=== PATIENT | male | born 1960 | race Caucasian/White ===

== ENCOUNTER 2017-02-13 17:45 | Inpatient (IN) | payer BC ==
--- NOTE | ~2017-02-13 | OP ---
Record Of Operation [facility] [address] [place]. 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 The tumor is unresectable at this time, obstructive jaundice secondary to biliary obstruction, hypertension, diabetes, coronary artery disease, and history of transient ischemic attack. PROCEDURE: Laparotomy, biopsy of head of pancreas and uncinate process, and cholecystectomy. SURGEON: Wilfred Diggs M.D. ANESTHESIA: General with intubation. COMPLICATIONS: None. ESTIMATED BLOOD LOSS: 20 mL. SPECIMENS: Gallbladder. DRAINS: Jann-Mendes in abdominal cavity, [place] in subcutaneous tissue. LAP AND SPONGE COUNT: Correct x3. BRIEF HISTORY: This 56-year-old male had been admitted to the hospital emergently on 02/13/2017. His workup showed evidence for an obstruction of the distal common bile duct secondary to a malignant stricture. This was associated with obstructive jaundice. ERCP and biliary stent had been placed. His workup showed no definite evidence for pancreatic mass and this was felt to be a resectable malignancy of the periampullary region. It was therefore felt that laparotomy with probable Whipple procedure was indicated. This procedure, the risks, benefits, and alternatives including but not limited to the risk for bleeding, infection, enterotomy, injury to any abdominal structure, postop small bowel obstruction, ileus, incisional hernia, dehiscence, anastomotic leak involving any one or all three of the anastomoses including the biliary, pancreatic or gastric anastomosis, pancreatitis, pancreatic fistula formation, obstruction of any one or all three of the anastomoses including the gastric, biliary or pancreatic anastomosis, possibility that the tumor might not be resectable and unforeseen complications including deep venous thrombosis, pulmonary embolus, myocardial infarction, stroke, pneumonia and , were fully and Record Of Operation [facility] [id number] [place]. [address] NAME: JOÃO MOORE JR : 60 STATUS : ADM IN PAT#: [id number] AGE: 56 ADM/REG DATE : 02/13/17 MR#: [id number] REPORT SERV DATE: 02/19/17 DICTATED BY: WILFRED DIGGS III DATE: 02/19/17 REPORT STATUS : Draft TRANSCRIBED BY: BINDU DATE: 02/19/17 completely explained to the patient prior to surgery. The fact that this was a major operation with high risk for morbidity and mortality was explained. The fact this was the only potential procedure for cure in this setting with this malignancy was explained. The risk of morbidity requiring reoperation of at least 20%, risk of mortality of 5%-10% was explained. The patient's questions were answered. He fully understood the risks and agreed to surgery as planned. FINDINGS: The patient had a malignancy of the head of the pancreas. The malignancy extended to the portal vein and the radiographic findings grossly underestimated the extent of the disease. Malignancy extended into the pancreatic head superior to the portal vein along the superior portion of the pancreas and along the right lateral border of the portal vein. The portal vein was tethered to the pancreas due to the malignancy primarily along the superior border of the pancreas. It was unclear initially if this tethering or adherence of the pancreatic head of the portal vein was secondary to pancreatitis or malignancy. For this reason, intraoperative biopsies were performed of the area involving the portal vein, and these biopsies returned being positive for malignancy. Therefore, the tumor was felt to be unresectable currently. However, the primary area of unresectability was along the right lateral border of the portal vein and just superior to the portal vein along the superior portion of the pancreas. This extended into the portal region. It was felt that a segmental portal vein resection would not be possible. It was my judgment made intraoperatively, attempting to complete the Whipple procedure would have placed the patient at significant risk for major portal vein injury with possible intraoperative . In addition, it was clear that with clear resection, margins could not be obtained, again secondary to involvement of the portal vein. There was a significant portion of the portal vein involved, which would have made segmental resection not feasible as the involvement extended again into the portal area proximally. For this reason, biopsies were taken for further histologic confirmation and the gallbladder was removed. PROCEDURE IN DETAIL: After being properly identified and after discussing risks of surgery with the patient again in the preoperative area, with no family here in the preoperative area, the patient was taken to the operating room and placed in the supine position on the operating room table. General anesthesia was administered. He was intubated without difficulty. A Emerson catheter was inserted. The abdomen was prepped and draped sterilely in the usual fashion. After an appropriate "time-out" per JCAHO standards, a right subcostal incision was made and extended across the midline to the left. The incision was continued through the subcutaneous tissue. Hemostasis was controlled with cautery. The incision was continued through the fascia. The abdominal cavity was entered. The above findings were confirmed. There was no evidence for carcinomatosis or peritoneal disease. The gallbladder was distended and appeared chronically diseased. Using sharp dissection, the gallbladder was dissected from the liver in a retrograde fashion. The cystic artery and cystic duct were individually isolated, ligated, and divided. The gallbladder was thus completely removed. A Alon maneuver was performed by dividing the peritoneal reflection to the duodenum along the second and third portion of duodenum. The duodenum was mobilized medially. The duodenum was easily mobilized away from the inferior vena cava. Record Of Operation [address] [place]. [address] NAME: JOÃO MOORE JR : 60 STATUS : ADM IN PAT#: [id number] AGE: 56 ADM/REG DATE : 02/13/17 MR#: [id number] REPORT SERV DATE: 02/19/17 DICTATED BY: WILFRED DIGGS III DATE: 02/19/17 REPORT STATUS : Draft TRANSCRIBED BY: MODL DATE: 02/19/17 At this time, the lesser sac was entered by dividing the gastrocolic ligament between the stomach and the colon using the Harmonic scalpel. The lesser sac was entered. We dissected along the inferior border of the pancreas. Using sharp dissection, we dissected along the inferior border of the pancreas and identified the superior mesenteric vein as it went just beneath the inferior border of the pancreas. We then dissected superiorly. It was clear that the superior portion of the portal vein just beneath the superior surface of the pancreas, was tethered down by tumor. In addition, laterally on the right lateral side, the portal vein was not separable. The tumor was encroaching in the uncinate process and head of the pancreas, both lateral to the portal vein and superior to the portal vein. A considerable amount of time was spent inspecting this area, both through the lesser sac and through the portal region. Using sharp dissection, peritoneal reflection over the common bile duct was divided. The common bile duct was exposed proximally and distally and a vessel loop was placed around it. We attempted to identify the portal vein in the portal region just above the superior border of the pancreas. This area was tethered by tumor. It was clear to me that the tumor extended from the head of the pancreas, from the common bile duct, to the uncinate process, to again the right lateral wall of the portal vein and superior to the portal vein. It was initially unclear if the involvement of the portal vein was secondary to pancreatitis or malignancy. For this reason, several core needle biopsies were performed on the tissue of the pancreatic head just superior to the portal vein where the portal vein was involved and to the right lateral side of the uncinate process. These were the first biopsies, biopsies #1, were of the pancreatic head and these were positive for malignancy. Several more biopsies were then taken, the second biopsies, which were of the uncinate process along the right lateral border of the portal vein. These were also positive. These findings confirmed to me that this was not resectable at this time. It was not a short-segment of portal vein involved, but the involvement extended up into the portal region. I did not feel the portal vein could be safely resected. I felt that the procedure could possibly complete, but there would be grossly involved margins along the portal vein. For this reason, we felt again that the procedure should not be come completed. The patient had no evidence for gastric outlet obstruction and therefore, there was no evidence of any indication or need for gastric bypass. The biliary stent was already in place and therefore, I did not feel there was indication for biliary bypass. The abdominal cavity was irrigated copiously with saline. Hemostasis was assured. A Jann-Mendes drain was brought through a separate stab wound lateral to the incision and placed in the gallbladder bed. Hemostasis was assured. The fascia was closed in two layers with a running looped #1 PDS suture. The subcutaneous tissue was closed with a running 3-0 chromic suture over the Melissa drain which was brought through the lower aspect of incision. The skin was closed with a running subcuticular 4-0 Monocryl stitch. Dressings were applied. Anesthesia was reversed, and the patient was taken to the recovery room in stable condition. He tolerated the procedure well. He initially had no family reachable to discuss the results of surgery with. I later discussed the results of surgery with his mother. DAVID/BINDU Record Of [address] [place]. [address] NAME: JOÃO MOORE : 60 STATUS : ADM IN [facility]#: [id number] AGE: 56 ADM/REG DATE : 02/13/17 MR#: [id number] REPORT SERV DATE: 02/19/17 DICTATED BY: WILFRED DIGGS III DATE: 02/19/17 REPORT STATUS : Draft TRANSCRIBED BY: BINDU DATE: 02/19/17 Wilfred Diggs III, M.D. / [id number] CC: Jase Garcia M.D.
--- NOTE | ~2017-02-13 | EGD ---
EGD REPORT [facility] [address] [place] [address] NAME: JOÃO MOORE JR : 60 STATUS : ADM IN PAT#: [id number] AGE: 56 ADM/REG DATE : 02/13/17 MR#: [id number] REPORT SERV DATE: 02/22/17 DICTATED BY: TIM BURNETT DATE: 02/22/17 REPORT STATUS : Draft [facility]ANS[facility]ED [facility]: [facility] DATE: 02/22/17 [facility] Patient Name: João Moore Date of : 1960 Attending MD: TIM BURNETT MD Procedure Date No Time: 02/14/2017 Procedure: ERCP Indications: Jaundice, Bile duct stricture Medicines: Monitored Anesthesia Care, General Anesthesia Complications: No immediate complications. Estimated blood loss: Minimal. Procedure: Pre-Anesthesia Assessment: - ASA Grade Assessment: IV - A patient with severe systemic disease that is a constant threat to life. After obtaining informed consent, the scope was passed under direct vision. Throughout the procedure, the patient's blood pressure, pulse, and oxygen saturations were monitored continuously. The Endoscope was introduced through the mouth, and advanced to the duodenum and used to inject contrast into the bile duct. The ERCP was accomplished without difficulty. The patient tolerated the procedure well. Findings: The invoice machine operator film was normal. The esophagus was successfully intubated under direct vision. The scope was advanced to a normal major papilla in the descending duodenum without detailed examination of the pharynx, larynx and associated structures, and upper GI tract. The minor papilla was seen and appeared to be enlarged, measuring approximately 10 mm in size, possibly secondary to a papillary adenoma. Biopsies were not taken during this procedure. The major papilla was located and numerous attempts were made to cannulate the CBD, but this proved to be very difficult with the wire continuing to go into the ventral pancreatic duct, but appeared to hit an obstruction each time, suggestive of possible pancreas divisum. The orignical wire was left in place in the VPD and a second wire was used to attempt to cannulate the CBD. After engaging the papilla several additional times, the wire was finally passed into the CBD. The bile duct was then cannulated and opacified with the short-nosed traction sphincterotome. I personally interpreted the bile duct images. Image quality was adequate. The lower third of the main bile duct contained a single moderate stenosis 10 mm in length. Due to the difficulty with cannulation and possibility of losing the wire placement, a 10 mm biliary sphincterotomy was made with a monofilament traction (standard) sphincterotome using ERBE electrocautery. The sphincterotomy oozed blood. Cells for cytology were obtained by brushing EGD REPORT [address] [place]. [address] NAME: JEFFREY MOOREOLD SAMUEL VALENTE : 60 STATUS : ADM IN [facility]#: [id number] AGE: 56 ADM/REG DATE : 02/13/17 MR#: [id number] REPORT SERV DATE: 02/22/17 DICTATED BY: TIM BURNETT DATE: 02/22/17 REPORT STATUS : Draft TRANSCRIBED BY: [employer] DATE: 02/22/17 from the stenosis. One 10 Fr by 7 cm plastic stent with a single external flap and a single internal flap was placed into the common bile duct. Clear fluid flowed through the stent. The stent was in good position. Impression: - A moderate biliary stricture was found. The stricture was malignant appearing. Brushed for cytology - Enlarged minor papilla - Not biopsied due to risk of pancreatitis - 10 Fr x 7 cm biliary stent placed for decompression Recommendation: - [facility] patient to [facility] care. - Return to previous diet. - Await cytology results. - Refer to a surgeon at the next available appointment. Procedure Code(s): --- Professional --- 22502, Endoscopic retrograde cholangiopancreatography (ERCP); with placement of endoscopic stent into biliary or pancreatic duct, including pre- and post-dilation and guide wire passage, when performed, including sphincterotomy, when performed, each stent Diagnosis Code(s): --- Professional --- K83.1, Obstruction of bile duct R17, Unspecified jaundice CPT copyright 2013 [employer] [employer]. All rights reserved. The codes documented in this report are preliminary and upon cement based materials pump tender review may be revised to meet current compliance requirements. Tim Burnett MD TIM BURNETT MD 02/14/2017 10:09 AM This report has been signed electronically. Number of Addenda: 0 Note Initiated On: 02/14/2017 7:09 AM Scope Withdrawal Time 0 hours 0 minutes 0 seconds [address] [place] [address]
--- NOTE | ~2017-02-13 | CN ---
Consultation Report [address] [place]. [address] NAME: JOÃO MOORE JR : 60 STATUS : ADM IN [facility]#: [id number] AGE: 56 ADM/REG DATE : 02/13/17 MR#: [id number] REPORT SERV DATE: 02/18/17 DICTATED BY: KATJA WHITAKER DATE: 02/18/17 REPORT STATUS : Draft TRANSCRIBED BY: MODL DATE: 02/18/17 PULMONARY CONSULTATION DATE OF CONSULTATION: 02/18/2017 REASON FOR CONSULTATION: Pneumothorax. HISTORY OF PRESENT ILLNESS: Mr. Moore is a 56-year-old white male, former smoker, without a prior pulmonary diagnosis, who was admitted with jaundice secondary to pancreatic mass. He developed a small right apical pneumothorax from right subclavian line insertion prior to abdominal surgery, so Pulmonary was consulted for assistance. A Whipple procedure was planned, but the surgery was changed to an open cholecystectomy with pancreatic biopsy due to the extent of the tumor. As noted, he had a right subclavian line inserted for the surgery. After the line insertion, he had a chest x-ray that revealed an 8 mm right apical pneumothorax. He denies current or previous pulmonary symptoms. He states that he has never had any issues with his breathing despite his history of smoking. Currently, he is complaining of abdominal pain, but he denies shortness of breath, cough, wheezing, or chest pain. PAST MEDICAL HISTORY: 1. Former smoker. 2. Recent onset of jaundice with subsequent surgery for pancreatic tumor as described above. 3. Hyperlipidemia. 4. Diabetes mellitus, insulin requiring. 5. Previous TIA x2. 6. Hypertension. 7. Coronary artery disease. 8. Degenerative joint disease/osteoarthritis. 9. Previous inguinal hernia repair x3. 10.Appendectomy. FAMILY HISTORY: He denies a family history of pulmonary diseases. SOCIAL HISTORY: Mr. Dumont smoked one pack of cigarettes per day for more than 10 years and quit 20 years ago. He smoked marijuana on a regular basis for approximately 40 years and states he quit two to three years ago. He has a long history of dust exposure related to his working with [employer]. He quit working and has been on disability secondary to back pain and diabetes mellitus. He denies ethanol intake, other past/present drug use, or Consultation Report [address] [address] NAME: JOÃO MOORE JR : 60 STATUS : ADM IN PAT#: [id number] AGE: 56 ADM/REG DATE : 02/13/17 MR#: [id number] REPORT SERV DATE: 02/18/17 DICTATED BY: KATJA WHITAKER DATE: 02/18/17 REPORT STATUS : Draft TRANSCRIBED BY: BINDU DATE: 02/18/17 chewing tobacco. He is unmarried and has one son. He lives with his mother. MEDICATIONS: Outpatient and inpatient medications were reviewed and are as documented in the record. He was on no outpatient pulmonary medications. ALLERGIES: HE DENIES MEDICATION ALLERGIES. REVIEW OF SYSTEMS: A 10-point system review was conducted and is remarkable for the symptoms as described in the history of present illness. As noted above, he denies pulmonary symptoms. He denies symptoms suggestive of obstructive sleep apnea. He denies allergy symptoms, nasal congestion, or GERD symptoms. PHYSICAL EXAMINATION: VITAL SIGNS: Temperature 98.4 degrees, heart rate 80, blood pressure 135/62, respiratory rate 18, and oxygen saturation 95% on supplemental oxygen at a flow rate of 4 L/minute. GENERAL: Well-nourished, well-developed white male. Alert, oriented, no apparent distress. Lying comfortably in bed. HEENT: Normocephalic. Atraumatic. There is no scleral icterus. The conjunctivae are clear. The oropharynx is clear. He has a large crow. NECK: Supple. No lymphadenopathy was noted. LUNGS: Shallow respirations due to decreased effort. The lungs are clear to auscultation bilaterally. HEART: Regular rate and rhythm. No ectopy was noted. ABDOMEN: Soft. Nondistended. Diffusely tender. There are diminished bowel sounds in all four quadrants. NEUROLOGICAL: A very limited exam, was found to be nonfocal. SKIN: No rashes were noted. BILATERAL EXTREMITIES: There is no clubbing, cyanosis, or edema. LABORATORY RESULTS: Labs were reviewed and are as documented in the record. IMAGING: The CT scan of the chest done this admission on 02/16/2017 revealed minimal right basilar atelectasis, but no infiltrates, effusions, or masses. The chest x-ray done today after right subclavian line insertion revealed poor respiratory effort. There is an 8 mm right apical pneumothorax. No infiltrates or effusions were noted. ASSESSMENT AND PLAN: Mr. Moore is a 56-year-old white male, former smoker, with a small right apical pneumothorax after subclavian line placement. He has no pulmonary symptoms of previous pulmonary diagnosis as noted. Other than the right pneumothorax, there are no other significant pulmonary abnormalities noted on chest imaging. Recommend conservative treatment due to the size of the pneumothorax and the fact that the Consultation Report [address] [place]. [address] NAME: JOÃO MOORE JR : 60 STATUS : ADM IN [facility]#: [id number] AGE: 56 ADM/REG DATE : 02/13/17 MR#: [id number] REPORT SERV DATE: 02/18/17 DICTATED BY: KATJA WHITAKER DATE: 02/18/17 REPORT STATUS : Draft TRANSCRIBED BY: BINDU DATE: 02/18/17 patient is asymptomatic. We would add an incentive spirometer for purposes of pulmonary toilet. Recommend supplemental oxygen at a minimum flow rate of 4 L/minute to aid in resorption of the pneumothorax. The oxygen may be increased if needed for oxygen saturations less than 91%. Recommend checking a chest x-ray in the morning. Further recommendations to follow after review of that chest x-ray. Thank you very much for this consultation. AJIT/BINDU Katja Whitaker M.D. / [id number] CC: Jase Garcia M.D.
--- NOTE | ~2017-02-13 | CN ---
Consultation Report [facility] [address] [place]. [address] NAME: JOÃO MOORE JR : 60 STATUS : ADM IN PAT#: [id number] AGE: 56 ADM/REG DATE : 02/13/17 MR#: [id number] REPORT SERV DATE: 02/17/17 DICTATED BY: HARRIS LUIS DATE: 02/16/17 REPORT STATUS : Draft TRANSCRIBED BY: MODL DATE: 02/16/17 DATE OF CONSULTATION: 02/16/2017 REASON FOR CONSULTATION: Suspected pancreatic cancer. HISTORY: Mr. Moore is a 56-year-old man, who presented to [facility] with new onset painless jaundice with marked itching over a couple of days. He was not having any fever or weight loss, nor any nausea or vomiting or abdominal pain. Bilirubin was noted to be 10.9 on admission there on 02/11/2017 and his CBC was normal, except for mild anemia with hemoglobin of 12.8 and platelet count slightly elevated at 438,000. Creatinine was 1.3, glucose 205 and he had been diabetic for over 15 years. He had MRI of the abdomen on 02/11/2017, which revealed biliary obstruction, high-grade short-segment stricture of the common bile duct to the level of the pancreatic head with a suspected short-segment stricture of the adjacent pancreatic duct, which was concerning for underlying pancreatic mass lesion, but no well-defined mass lesion was evident on noncontrast study. The distal 2 cm of the common duct and the pancreatic duct appeared to be normal, bleeding into the ampulla. There was no evidence of any lymphadenopathy. CA-19-9 level on 02/13/2017 was 4708. He was transferred to [facility] on 02/13/2017 for plan is to have ERCP and endoscopic ultrasound with biopsy. This was done on 02/14/2017 revealing evidence of a dilatation of the common bile duct, which measured up to 13 mm with some sludge located in the common bile duct. There was no evidence any pancreatic tumor or pathology. There was suggestion of stricture of the lower third of the main bile duct. The ERCP confirmed a moderate biliary stricture, which would appear to be malignant and brushing for cytology confirmed adenocarcinoma. CT scan of the chest, abdomen, pelvis done on 02/16/2017 again revealed the newly placed stent and evidence of some fatty infiltration of the liver without focal liver lesion. There was no adenopathy in the chest, abdomen, or pelvis. There was no evidence of a well-defined mass lesion in the head of the pancreas. Ultrasound of the gallbladder on 02/11/2017 did reveal the gallbladder sludge and minimal calculi, hepatomegaly, but no focal abnormality evident. 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 PAST MEDICAL AND SURGICAL HISTORY: Significant for diabetes mellitus over 15 years, chronic disability over 10 years due to osteoarthritis and osteoporosis, coronary artery disease diagnosed in January 2016, hypertension, hyperlipidemia, history of TIA x2, previous tobacco dependency, but quit over 20 years ago. Surgery includes prior inguinal hernia repair x3, prior appendectomy, and prior cardiac catheterization. FAMILY HISTORY: Includes heart disease in mother and father. Grandfather had prostate cancer and uncle had prostate cancer. SOCIAL HISTORY: He is single, lives in [place], has children, chronically disabled. No recent cigarette smoking or alcohol use. No illicit drug use in the past few months. Previously had smoked marijuana. He previously worked in construction, primarily doing Consultation Report [address] [address] NAME: JOÃO MOORE JR : 60 STATUS : ADM IN [facility]#: [id number] AGE: 56 ADM/REG DATE : 02/13/17 MR#: [id number] REPORT SERV DATE: 02/17/17 DICTATED BY: HARRIS LUIS DATE: 02/16/17 REPORT STATUS : Draft TRANSCRIBED BY: BINDU DATE: 02/16/17 demolition of [email or web address]. MEDICATIONS: As per medication sheet. ALLERGIES: NO KNOWN DRUG ALLERGIES. REVIEW OF SYSTEMS: A 13-point review of systems as per HPI. Otherwise, unremarkable. PHYSICAL EXAMINATION: VITAL SIGNS: Currently afebrile with normal vital signs. GENERAL: He is a well-developed and well-nourished man, in no acute distress with moderate jaundice/scleral icterus. NECK: No JVD or adenopathy. HEART: Regular rate and rhythm without murmurs, gallops, rubs. LUNGS: Clear to auscultation and percussion. ABDOMEN: Moderately obese with active bowel sounds. Soft and nontender. No palpable organomegaly or masses. EXTREMITIES: Without cyanosis, clubbing, or edema. Pulses intact distally. LYMPH NODE SURVEY: Without palpable cervical, supraclavicular, axillary, inguinal nodes. NEUROLOGIC: Grossly intact. The patient is lying in bed. IMPRESSION: The patient appears to have painless obstructive jaundice, most likely due to adenocarcinoma of the pancreas, although a primary distal bile duct tumor is also in the differential. At this time, there is no evidence of any regional or distant metastases on CT ultrasound or MRI and none seen on the endoscopic ultrasound. Based upon this, surgical intervention appears to be warranted. Surgery has evaluated the patient and they are contemplating the surgery in the near future. I would not recommend any consideration of preoperative chemotherapy. The role of adjuvant chemotherapy and/or radiation would depend upon the final pathology results obtained from surgical staging and treatment. The patient lives in [place] and would like to have a followup consultation with Medical Oncology at our [facility] office under the care of Dr. Wray after discharge from the hospital. I say it would be appropriate to see him about two weeks post discharge to review pathology and decide if there is any role for adjuvant systemic therapy. PAUL/BINDU Harris Luis M.D. / [id number] CC: Consultation Report [address] [address] NAME: JOÃO MOORE JR : 60 STATUS : ADM IN [facility]#: [id number] AGE: 56 ADM/REG DATE : 02/13/17 MR#: [id number] REPORT SERV DATE: 02/17/17 DICTATED BY: HARRIS LUIS DATE: 02/16/17 REPORT STATUS : Draft TRANSCRIBED BY: BINDU DATE: 02/16/17 Joey Lira MD Richard Hunter Jennings III, M.D.
--- NOTE | ~2017-02-13 | CN ---
Consultation Report [facility] [address] [place]. [address] NAME: JOÃO MOORE JR : 60 STATUS : ADM IN [facility]#: [id number] AGE: 56 ADM/REG DATE : 02/13/17 MR#: [id number] REPORT SERV DATE: 02/17/17 DICTATED BY: WILFRED DIGGS III DATE: 02/17/17 REPORT STATUS : Draft TRANSCRIBED BY: MODL DATE: 02/17/17 CONSULT DATE OF CONSULTATION: 02/16/2017 REASON FOR CONSULT: 1. Pancreatic cancer. 2. Routine recommendation regarding surgical management. HISTORY OF PRESENT ILLNESS: We have been asked to see this 56-year-old male hospitalized for the above reasons. The patient presented to the emergency room on 02/10/2017 at [facility] with extreme jaundice and pruritus. This has been ongoing for several days. The patient denies any abdominal pain. He had no nausea or vomiting. He had no GI bleeding. No change in bowel habits. He had no fever or chills or any other complaints. He had had a five-pound weight loss in the last month. The patient is found to be jaundiced with a bilirubin of 10.9 and alkaline phosphatase at 1300. Gallbladder ultrasound shows gallbladder sludge and stones with thickening and mild pericholecystic fluid. Common bile duct dilatation was noted at 12 mm with prominence of the pancreatic duct. Further workup revealed evidence for biliary obstruction based on MRI, with no definite pancreatic mass seen. There was noted to be biliary dilatation to the pancreatic head, but no definite pancreatic mass was seen. The patient was transferred to [facility]. ERCP and EUS performed on 02/14/2017, with ERCP stent placement was performed. This showed a moderate biliary stricture with difficulty cannulating the common bile duct. Brushings were obtained and were positive of the distal common bile duct for adenocarcinoma. EUS showed a stricture of the distal common bile duct with no mass. The patient's CA-19-9 is elevated at 4700. PAST MEDICAL HISTORY: 1. Coronary artery disease. 2. Hypertension. 3. Diabetes mellitus. 4. Transient ischemic attack in the past. 5. Arthritis. 6. Hyperlipidemia. 7. History of tobacco abuse. PAST SURGICAL HISTORY: Include appendectomy and inguinal hernia repair x3. SOCIAL HISTORY: The patient is disabled. He is not . He lives with his mother and son. He has a history of tobacco use for 20 years. He has no history of alcohol use. Consultation Report [facility] [address] [place]. [address] NAME: JOÃO MOORE JR : 60 STATUS : ADM IN PAT#: [id number] AGE: 56 ADM/REG DATE : 02/13/17 MR#: [id number] REPORT SERV DATE: 02/17/17 DICTATED BY: WILFRED DIGGS III DATE: 02/17/17 REPORT STATUS : Draft TRANSCRIBED BY: BINDU DATE: 02/17/17 ALLERGIES: NONE. MEDICATIONS: Norvasc, Lioresal, Coreg, Neurontin, insulin. FAMILY HISTORY: Positive for prostate cancer. PHYSICAL EXAMINATION: GENERAL: This is a male, in no acute distress. He is alert and oriented x3. VITAL SIGNS: Blood pressure 115/57, pulse 71, temperature 98.5. HEENT: Unremarkable. NECK: Unremarkable. No adenopathy. NEUROLOGIC: Cranial nerves II through XII are normal. LUNGS: Clear. CARDIAC: Normal. ABDOMEN: Soft and nontender. LABORATORY DATA: CT scan of the abdomen and pelvis shows no definite evidence for pancreatic mass and no evidence for metastatic disease. This was done with p.o. and IV contrast. Other workup including EUS and ERCP are as above. ASSESSMENT: 1. A 56-year-old male with biopsy-proven cancer of the distal common bile duct, consistent with ampullary or pancreatic cancer. 2. Obstructive jaundice secondary to biopsy-proven cancer of the distal common bile duct. 3. Hypertension. 4. Diabetes mellitus. 5. History of tobacco abuse. 6. Coronary artery disease. 7. Transient ischemic attack. 8. Hyperlipidemia. 9. Arthritis. PLAN: Discussed this with the patient. He has a cancer of the distal bile duct likely secondary to pancreatic or ampullary cancer. This is a potentially curable malignancy with surgical intervention, which is a Whipple procedure or pancreaticoduodenectomy. This procedure, risks, benefits, and alternatives have been discussed with the patient. The option of non-treatment has been explained. The fact that this is a major operation with high risk for morbidity, mortality with only option for potential cure has been explained. The risks, benefits, and alternatives regarding the surgery including, but not limited to the risk for bleeding; infection; enterotomy; injury to abdominal structure; postop small bowel obstruction; ileus; incisional hernia; dehiscence; anastomotic leak involving any one or all three of the anastomosis including the gastric, pancreatic or biliary anastomosis; obstruction of any one or all three of the anastomosis including the biliary, pancreatic, or gastric anastomosis; gastroparesis; gastric bowel obstruction; pancreatitis; pancreatic fistula formation or pancreatic leak resulting in peritonitis, sepsis, and , and Consultation Report [address] [address] NAME: JOÃO MOORE : 60 STATUS : ADM IN PAT#: [id number] AGE: 56 ADM/REG DATE : 02/13/17 MR#: [id number] REPORT SERV DATE: 02/17/17 DICTATED BY: WILFRED DIGGS III DATE: 02/17/17 REPORT STATUS : Draft TRANSCRIBED BY: BINDU DATE: 02/17/17 unforeseen complications including deep venous thrombosis, pulmonary embolus, myocardial infarction, stroke, pneumonia, and , have been fully and completely explained to the patient at length prior to surgery. The fact that this is a major operation with high risk for morbidity and mortality has been explained. The risk of morbidity requiring re- operation was at least 20 %, risk of mortality 5% to 10% has been explained. The patient's questions have been answered. He clearly understands the risks and agrees to surgery as planned. DAVID/BINDU Wilfred Diggs III, M.D. / [id number] CC: Dr. Sigala
--- NOTE | ~2017-02-13 | EGD ---
EGD REPORT [facility] [address] [place]. [address] NAME: JOÃO MOORE JR : 60 STATUS : ADM IN PAT#: [id number] AGE: 56 ADM/REG DATE : 02/13/17 MR#: [id number] REPORT SERV DATE: 02/14/17 DICTATED BY: TIM BURNETT DATE: 02/14/17 REPORT STATUS : Draft [facility]ANSCRIBED [facility]: [facility] DATE: 02/14/17 Endoscopy Center Patient Name: João Moore Date of : 1960 Attending MD: TIM BURNETT MD Procedure Date No Time: 02/14/2017 Procedure: Upper EUS Indications: CBD stricture on MRCP Medicines: General Anesthesia Complications: No immediate complications. Estimated blood loss: Minimal. Procedure: Pre-Anesthesia Assessment: - ASA Grade Assessment: IV - A patient with severe systemic disease that is a constant threat to life. - After reviewing the risks and benefits, the patient was deemed in satisfactory condition to undergo the procedure. After obtaining informed consent, the endoscope was passed under direct vision. Throughout the procedure, the patient's blood pressure, pulse, and oxygen saturations were monitored continuously. The Endoscope was introduced through the mouth, and advanced to the second part of duodenum. The upper EUS was accomplished without difficulty. The patient tolerated the procedure well. Findings: Endosonographic Finding : There was a suggestion of a stricture in the lower third of the main bile duct. There was dilation in the common bile duct which measured up to 13 mm. Minimal hyperechoic material consistent with sludge was visualized endosonographically in the common bile duct. There was no sign of significant endosonographic abnormality in the entire pancreas. No pathologic lymphadenopathy, no masses, no cysts, the pancreatic duct was thin in caliber. Endosonographic imaging of the visualized portion of the liver showed no abnormalities. A limited doppler examination was performed and revealed no significant vascular abnormalities. No lymphadenopathy seen. Impression: - There was a suggestion of a stricture in the lower third of the main bile duct. - There was dilation in the common bile duct which EGD REPORT [address] [address] NAME: JOÃO MOORE JR : 60 STATUS : ADM IN [facility]#: [id number] AGE: 56 ADM/REG DATE : 02/13/17 MR#: [id number] REPORT SERV DATE: 02/14/17 DICTATED BY: TIM BURNETT DATE: 02/14/17 REPORT STATUS : Draft TRANSCRIBED BY: [employer] DATE: 02/14/17 measured up to 13 mm. - Hyperechoic material consistent with sludge was visualized endosonographically in the common bile duct. - There was no sign of significant pathology in the entire pancreas. - A limited doppler examination was performed and revealed no significant vascular abnormalities. Recommendation: - Perform an ERCP today. Procedure Code(s): --- Professional --- 54509, Esophagogastroduodenoscopy, flexible, transoral; with endoscopic ultrasound examination, including the esophagus, stomach, and either the duodenum or a surgically altered stomach where the jejunum is examined distal to the anastomosis Diagnosis Code(s): --- Professional --- R93.2, Abnormal findings on diagnostic imaging of liver and biliary tract K83.8, Other specified diseases of biliary tract K83.1, Obstruction of bile duct CPT copyright 2013 [employer]. All rights reserved. The codes documented in this report are preliminary and upon director of recruiting review may be revised to meet current compliance requirements. Tim Burnett MD TIM BURNETT MD 02/14/2017 8:50 AM This report has been signed electronically. Number of Addenda: 0 Note Initiated On: 02/14/2017 8:11 AM Scope Withdrawal Time 0 hours 0 minutes 0 seconds [address] [address]
--- NOTE | ~2017-02-13 | EGD ---
EGD REPORT [facility] [address] [place]. [address] NAME: JOÃO MOORE JR : 60 STATUS : ADM IN PAT#: [id number] AGE: 56 ADM/REG DATE : 02/13/17 MR#: [id number] REPORT SERV DATE: 02/14/17 DICTATED BY: TIM BURNETT DATE: 02/14/17 REPORT STATUS : Draft TRANSCRIBED BY: [facility] DATE: 02/14/17 Endoscopy Center Patient Name: João Moore Date of : 1960 Attending MD: TIM BURNETT MD Procedure Date No Time: 02/14/2017 Procedure: ERCP Indications: Jaundice, Bile duct stricture Medicines: Monitored Anesthesia Care, General Anesthesia Complications: No immediate complications. Estimated blood loss: Minimal. Procedure: Pre-Anesthesia Assessment: - ASA Grade Assessment: IV - A patient with severe systemic disease that is a constant threat to life. After obtaining informed consent, the scope was passed under direct vision. Throughout the procedure, the patient's blood pressure, pulse, and oxygen saturations were monitored continuously. The Endoscope was introduced through the mouth, and advanced to the duodenum and used to inject contrast into the bile duct. The ERCP was accomplished without difficulty. The patient tolerated the procedure well. Findings: The collar baster film was normal. The esophagus was successfully intubated under direct vision. The scope was advanced to a normal major papilla in the descending duodenum without detailed examination of the pharynx, larynx and associated structures, and upper GI tract. The minor papilla was seen and appeared to be enlarged, measuring approximately 10 mm in size, possibly secondary to a papillary adenoma. Biopsies were not taken during this procedure. The major papilla was located and numerous attempts were made to cannulate the CBD, but this proved to be very difficult with the wire continuing to go into the ventral pancreatic duct, but appeared to hit an obstruction each time, suggestive of possible pancreas divisum. The orignical wire was left in place in the VPD and a second wire was used to attempt to cannulate the CBD. After engaging the papilla several additional times, the wire was finally passed into the CBD. The bile duct was then cannulated and opacified with the short-nosed traction sphincterotome. I personally interpreted the bile duct images. Image quality was adequate. The lower third of the main bile duct contained a single moderate stenosis 10 mm in length. Due to the difficulty with cannulation and possibility of losing the wire placement, a 10 mm biliary sphincterotomy was made with a monofilament traction (standard) sphincterotome using ERBE electrocautery. The sphincterotomy oozed blood. Cells for cytology were obtained by brushing EGD REPORT [address] [place]. [address] NAME: OSCARJOÃO SAMUEL VALENTE : 60 STATUS : ADM IN [facility]#: [id number] AGE: 56 ADM/REG DATE : 02/13/17 MR#: [id number] REPORT SERV DATE: 02/14/17 DICTATED BY: TIM BURNETT DATE: 02/14/17 REPORT STATUS : Draft TRANSCRIBED BY: [employer] DATE: 02/14/17 from the stenosis. One 10 Fr by 7 cm plastic stent with a single external flap and a single internal flap was placed into the common bile duct. Clear fluid flowed through the stent. The stent was in good position. Impression: - A moderate biliary stricture was found. The stricture was malignant appearing. Brushed for cytology - Enlarged minor papilla - Not biopsied due to risk of pancreatitis - 10 Fr x 7 cm biliary stent placed for decompression Recommendation: - [facility] patient to [facility]. - Return to previous diet. - Await cytology results. - Refer to a surgeon at the next available appointment. Procedure Code(s): --- Professional --- 86202, Endoscopic retrograde cholangiopancreatography (ERCP); with placement of endoscopic stent into biliary or pancreatic duct, including pre- and post-dilation and guide wire passage, when performed, including sphincterotomy, when performed, each stent Diagnosis Code(s): --- Professional --- K83.1, Obstruction of bile duct R17, Unspecified jaundice CPT copyright 2013 [employer] [employer]. All rights reserved. The codes documented in this report are preliminary and upon plant breeder review may be revised to meet current compliance requirements. Tim Burnett MD TIM BURNETT MD 02/14/2017 10:09 AM This report has been signed electronically. Number of Addenda: 0 Note Initiated On: 02/14/2017 7:09 AM Scope Withdrawal Time 0 hours 0 minutes 0 seconds [address] [place] [address]
--- NOTE | ~2017-02-13 | DS ---
Discharge Summary [facility] [address] [place]. [address] NAME: JOÃO MOORE JR : 60 STATUS : DIS IN PAT#: [id number] AGE: 56 ADM/REG DATE : 02/13/17 MR#: [id number] REPORT SERV DATE: 02/24/17 DICTATED BY: AFIA TRUJILLO DATE: 02/23/17 REPORT STATUS : Draft TRANSCRIBED BY: MODL DATE: 02/23/17 ADMISSION DATE: 02/13/2017 DISCHARGE DATE: 02/23/2017 PRINCIPAL DIAGNOSIS: Pancreatic cancer. SECONDARY DIAGNOSES: 1. Obstructive jaundice. 2. Type 2 diabetes. 3. Hypertension. 4. Coronary artery disease. HISTORY OF PRESENT ILLNESS: Please see dictation on 02/14/2017. HOSPITAL COURSE: Admitted with obstructive jaundice. Seen by GI and Surgery. The patient had a biliary stent and a cholecystectomy, however, very high CA 19-9 was noted without an obvious mass; however, endoscopic ultrasound did reveal what appeared to be a tumor with possible invasion of the portal vein. Not, therefore, felt to be a Whipple candidate, but due to the only local extension and lack of metastatic malignancy, efforts were made for preoperative chemo with the hope that tumor could be shrunk and he could undergo Whipple. He was eating well and was no longer icteric, and so had met the maximum benefit of hospitalization by 02/23/2017 with close followup with Dr. Wray at [facility] for chemotherapy and then with Dr. Vazquez ultimately for a possible Whipple procedure. He was left in his insulin, was not restarted on metformin due to the liver disease; however, he was started back on Lipitor as his LDL was found to be greater than 360. Other medications at discharge include aspirin, Percocet, Levemir, Protonix, isosorbide mononitrate, Coreg, and Norvasc. Follow up with Dr. Wray as mentioned and Dr. Vazquez as mentioned. Diet and activity as tolerated. Greater than 30 minutes were spent in the care of this patient . DICTATED BY: Joey Gr/BINDU Afia Trujillo M.D. / [id number] CC: Tho Hadley M.D. Discharge Summary [address] [place]. [address] NAME: JOÃO MOORE JR : 60 STATUS : DIS IN PAT#: [id number] AGE: 56 ADM/REG DATE : 02/13/17 MR#: [id number] REPORT SERV DATE: 02/24/17 DICTATED BY: AFIA TRUJILLO DATE: 02/23/17 REPORT STATUS : Draft TRANSCRIBED BY: BINDU DATE: 02/23/17 Joey Del Angel III, M.D.
--- NOTE | ~2017-02-13 | IDS ---
Interim Discharge Summary [facility] [address] [place]. [address] NAME: JOÃO MOORE JR : 60 STATUS : ADM IN [facility]#: [id number] AGE: 56 ADM/REG DATE : 02/13/17 MR#: [id number] REPORT SERV DATE: 02/18/17 DICTATED BY: ALPHONSE RASHEED DATE: 02/18/17 REPORT STATUS : Draft TRANSCRIBED BY: MODL DATE: 02/18/17 ADMISSION DATE: 02/13/2017 DISCHARGE DATE: CURRENT HOSPITAL DIAGNOSES: 1. 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 2. Obstructive jaundice, status post stent. 3. Hypertension. 4. Diabetes. 5. History of coronary disease. 6. History of transient ischemic attack. CONSULTATIONS: To Dr. Liao, Oncology; Dr. Vazquez, General Surgery; and GI, Dr. Shultz. PROCEDURES: 1. Upper endoscopic ultrasound showing suggestion of a stricture in the lower third of the main bile duct and dilatation of the common bile duct measuring up to 13 mm. No sign of significant endosonographic abnormality in the pancreas. No pathologic lymphadenopathy, masses, or cysts. 2. Endoscopic retrograde cholangiopancreatography showing a malignant-appearing biliary stricture which was brushed for cytology and a biliary stent was placed. 3. CT of the abdomen and pelvis done on the showing no well-defined mass lesions identified by CT in the head of the pancreas, fatty infiltration of the liver. No adenopathy within chest, abdomen, and pelvis. Moderate amount of atherosclerotic calcifications. 4. CT of the chest showing no tumors or metastases. 5. MRI of the abdomen done on the showing biliary obstruction with high-grade short- segment stricture of the common bile duct to the level of the pancreatic head and suspected short-segment stricture of the adjacent pancreatic duct as well concerning for underlying pancreatic mass lesion. 6. Gallbladder ultrasound done on the showing gallbladder sludge, possible minimal calculi, gallbladder wall thickening, and possible minimal pericholecystic fluid. No tenderness over the gallbladder during the exam, biliary duct dilatation, slight prominence of pancreatic duct, hepatomegaly with no focal abnormality. CURRENT PHYSICAL FINDINGS AND HISTORY OF PRESENT ILLNESS: Please see initial H and P by Dr. Mcneal on the as well as his discharge summary on the . In brief, the patient is a 56-year-old male who presented to [facility] with obstructive jaundice. Through evaluation there, was noted to have duct stricture and was transferred to [facility] for GI evaluation, ERCP, diagnosis, and treatment. Initial vital signs were stable. He had no active cardiac symptoms on presentation. LABORATORY DATA: Lab work showed a slight hyponatremia which was corrected. He presented with upper-normal creatinine findings with these normalized also. Blood sugars were averaging in the 150s to 200s. He had marked jaundice on presentation with a total bili of 10.9 getting as high as 14 on the 15, however, steadily decreased post stent placement. Interim Discharge Summary [place] [address] [place]. [address] NAME: JOÃO MOORE JR : 60 STATUS : ADM IN [facility]#: [id number] AGE: 56 ADM/REG DATE : 02/13/17 MR#: [id number] REPORT SERV DATE: 02/18/17 DICTATED BY: ALPHONSE RASHEED DATE: 02/18/17 REPORT STATUS : Draft TRANSCRIBED BY: MODL DATE: 02/18/17 He also had marked elevations of LFTs with AST/ALT on presentation, 383 and 443 respectively, also improving. Lipase was 794 and CA-19-9 was 4708. White count was 8.6, and he has had no significant leukocytosis. H and H have been averaging 10 and 30 approximately. PLAN: The patient was accepted in transfer. Home medications were reviewed. Reasonable pain and nausea medications were given. Again, he had no active cardiac symptoms. GI was consulted for endoscopy and ERCP which were done. Upon diagnosis of his tumor, pathology was requested, this has since returned an adenocarcinoma. He then received metastatic evaluation which to this point has been negative. Oncology and Surgery were consulted, it was elected to proceed with resection and probable Whipple procedure today which the patient was in agreement with. DISPOSITION: The patient will go to surgery later today. It is expected he will have an ICU stay postop. TLF/MODL Alphonse Rasheed M.D. / [id number] CC: Alphonse Rasheed M.D.
[~2017-02-13 17:45] MED LIST: ASAB PO; BACLOFEN20 MG PO; FORTAMET500 MG PO; HUMALOG SC; HYDROCHLOROT12.5 MG PO; ISORDIL10 PO; LANTUS SC; LIPITOR40 PO; LISINOPRIL40 MG PO; LOP25 PO; MONOKET PO; NEUR300 PO; NO HOME MEDS; OXYCODONE HCL PO
[2017-02-14 06:25] LABS: HEMATOCRIT 33.5 % (40.0-51.0); HEMOGLOBIN 10.9 g/dL (13.6-17.8); MEAN CORPUS HGB CONC 32.5 g/dL (32.0-36.0); MEAN CORPUSCULAR HEMOGLOB 28.6 pg (26.0-34.0); MEAN CORPUSCULAR VOLUME 87.9 fL (80-100); MEAN PLATELET VOLUME 10.5 fL (9.2-13.0); PLATELET COUNT 396 10/3/uL (150-400); RBC DISTRIBUTION WIDTH 14.7 % (12.0-16.0); RED CELL COUNT 3.81 10/6/uL (4.7-6.1); WHITE BLOOD CELLS 6.5 10/3/uL (4.5-10.5)
[2017-02-14 06:30] LABS: INTERNATIONAL NORMAL RATI 1.2 UNITS (-); PROTIME (NOT ORD) 15.3 SEC (12.0-14.5)
[2017-02-14 06:50] LABS: A/G RATIO 0.6 (0.7-1.9); ALBUMIN 2.4 G/DL (3.5-5.0); ALKALINE PHOSPHATASE 1155 U/L (45-117); BUN (BLOOD UREA NITROGEN) 10 MG/DL (6-23); CALCIUM, SERUM 9.2 MG/DL (8.5-10.4); CHLORIDE, SERUM 101 MMOL/L (96-112); CO2 (CARBON DIOXIDE) 24 MMOL/L (24-34); CREATININE 0.79 MG/DL (0.70-1.30); GFR AFRICAN AMERICAN 116 ML/MIN (>=60); GFR NON AFRICAN AMERICAN 100 ML/MIN (>=60); GLOBULIN 4.1 G/DL (2.5-4.1); GLUCOSE, SERUM 95 MG/DL (60-99); PHOSPHORUS, SERUM 2.9 MG/DL (2.5-4.5); POTASSIUM, SERUM 3.8 MMOL/L (3.5-5.3); SGPT(ALT) 396 U/L (5-65); SODIUM, SERUM 134 MMOL/L (135-148); TOTAL PROTEIN 6.5 G/DL (6.0-8.5)
[2017-02-14 06:51] LABS: DIRECT BILIRUBIN 11.3 MG/DL (0.0-0.4); INDIRECT BILIRUBIN(NOT ORDER) 2.8 MG/DL (0.1-0.9); SGOT(AST) 323 U/L (5-40); TOTAL BILIRUBIN 14.1 MG/DL (0-1.2)
[2017-02-14 08:26] LABS: ANISOCYTOSIS 1+ (5-10/OIF) (0-5/OIF); BAND NEUTROPHILS 2 %; BASOPHILS 2 %; BASOPHILS ABSOLUTE (CALC) 0.13 10/3/uL (0.0-0.16); EOSINOPHILS 4 %; EOSINOPHILS ABSOLUTE (CALC) 0.26 10/3/uL (0.0-0.53); LYMPHOCYTES 10 %; LYMPHOCYTES ABSOLUTE (CALC) 0.65 10/3/uL (0.67-4.30); MACROCYTES 1+ (5-10/OIF) (0-5/OIF); MONOCYTES 19 %; MONOCYTES ABSOLUTE (CALC) 1.24 10/3/uL (0.21-1.20); NEUTROPHILS ABSOLUTE (CALC) 4.23 10/3/uL (2.02-8.40); PLATELET ESTIMATE ADQ (ADEQUATE); POIKILOCYTOSIS 1+ (5-10/OIF) (0-5/OIF); SEGMENTED NEUTROPHIL (0) 63 %; TARGET CELLS FEW (3-10/OIF) (0-1/OIF); TOTAL NUCLEATED CELLS 100
[2017-02-15 05:47] LABS: BASOPHILS 0.5 %; BASOPHILS ABSOLUTE 0.03 10/3/uL (0.0-0.16); EOSINOPHILS 3.6 %; EOSINOPHILS ABSOLUTE 0.22 10/3/uL (0.0-0.53); HEMATOCRIT 33.4 % (40.0-51.0); HEMOGLOBIN 10.8 g/dL (13.6-17.8); IMMATURE GRANULOCYTES 0.3 %; IMMATURE GRANULOCYTES ABSOLUTE 0.02 10/3/uL (0.0-0.11); LYMPHOCYTES 16.7 %; LYMPHOCYTES ABSOLUTE 1.02 10/3/uL (0.67-4.30); MANUAL DIFF NO %; MEAN CORPUS HGB CONC 32.3 g/dL (32.0-36.0); MEAN CORPUSCULAR HEMOGLOB 28.7 pg (26.0-34.0); MEAN CORPUSCULAR VOLUME 88.8 fL (80-100); MEAN PLATELET VOLUME 10.6 fL (9.2-13.0); MONOCYTES 12.7 %; MONOCYTES ABSOLUTE 0.78 10/3/uL (0.21-1.20); NEUTROPHILS 66.2 %; NEUTROPHILS ABSOLUTE 4.05 10/3/uL (2.02-8.40); PLATELET COUNT 369 10/3/uL (150-400); RBC DISTRIBUTION WIDTH 14.8 % (12.0-16.0); RED CELL COUNT 3.76 10/6/uL (4.7-6.1); WHITE BLOOD CELLS 6.1 10/3/uL (4.5-10.5)
[2017-02-15 06:09] LABS: A/G RATIO 0.6 (0.7-1.9); ALBUMIN 2.4 G/DL (3.5-5.0); BUN (BLOOD UREA NITROGEN) 10 MG/DL (6-23); CALCIUM, SERUM 9.2 MG/DL (8.5-10.4); CHLORIDE, SERUM 97 MMOL/L (96-112); CO2 (CARBON DIOXIDE) 25 MMOL/L (24-34); CREATININE 0.95 MG/DL (0.70-1.30); GFR AFRICAN AMERICAN 103 ML/MIN (>=60); GFR NON AFRICAN AMERICAN 89 ML/MIN (>=60); GLOBULIN 4.2 G/DL (2.5-4.1); SGOT(AST) 184 U/L (5-40); SGPT(ALT) 302 U/L (5-65); SODIUM, SERUM 132 MMOL/L (135-148); TOTAL PROTEIN 6.6 G/DL (6.0-8.5)
[2017-02-15 06:10] LABS: ALKALINE PHOSPHATASE 1073 U/L (45-117); DIRECT BILIRUBIN 6.3 MG/DL (0.0-0.4); GLUCOSE, SERUM 167 MG/DL (60-99); INDIRECT BILIRUBIN(NOT ORDER) 2.4 MG/DL (0.1-0.9); TOTAL BILIRUBIN 8.7 MG/DL (0-1.2)
[2017-02-16 06:58] LABS: BASOPHILS 0.7 %; BASOPHILS ABSOLUTE 0.04 10/3/uL (0.0-0.16); EOSINOPHILS 3.4 %; EOSINOPHILS ABSOLUTE 0.21 10/3/uL (0.0-0.53); HEMATOCRIT 34.6 % (40.0-51.0); HEMOGLOBIN 11.1 g/dL (13.6-17.8); IMMATURE GRANULOCYTES 0.2 %; IMMATURE GRANULOCYTES ABSOLUTE 0.01 10/3/uL (0.0-0.11); LYMPHOCYTES 18.4 %; LYMPHOCYTES ABSOLUTE 1.13 10/3/uL (0.67-4.30); MEAN CORPUS HGB CONC 32.1 g/dL (32.0-36.0); MEAN CORPUSCULAR HEMOGLOB 28.5 pg (26.0-34.0); MEAN CORPUSCULAR VOLUME 88.7 fL (80-100); MEAN PLATELET VOLUME 10.5 fL (9.2-13.0); MONOCYTES 12.1 %; MONOCYTES ABSOLUTE 0.74 10/3/uL (0.21-1.20); NEUTROPHILS 65.2 %; PLATELET COUNT 367 10/3/uL (150-400); RBC DISTRIBUTION WIDTH 14.9 % (12.0-16.0); WHITE BLOOD CELLS 6.1 10/3/uL (4.5-10.5)
[2017-02-16 07:01] LABS: MANUAL DIFF NO %
[2017-02-16 07:25] LABS: ALBUMIN 2.6 G/DL (3.5-5.0); ALKALINE PHOSPHATASE 1007 U/L (45-117); BUN (BLOOD UREA NITROGEN) 12 MG/DL (6-23); CALCIUM, SERUM 9.1 MG/DL (8.5-10.4); CHLORIDE, SERUM 97 MMOL/L (96-112); CO2 (CARBON DIOXIDE) 25 MMOL/L (24-34); CREATININE 0.82 MG/DL (0.70-1.30); DIRECT BILIRUBIN 3.9 MG/DL (0.0-0.4); GFR AFRICAN AMERICAN 115 ML/MIN (>=60); GFR NON AFRICAN AMERICAN 99 ML/MIN (>=60); GLUCOSE, SERUM 257 MG/DL (60-99); INDIRECT BILIRUBIN(NOT ORDER) 1.6 MG/DL (0.1-0.9); SGOT(AST) 103 U/L (5-40); SGPT(ALT) 227 U/L (5-65); SODIUM, SERUM 132 MMOL/L (135-148); TOTAL BILIRUBIN 5.5 MG/DL (0-1.2); TOTAL PROTEIN 7.2 G/DL (6.0-8.5)
[2017-02-17 05:56] LABS: BASOPHILS ABSOLUTE 0.05 10/3/uL (0.0-0.16); EOSINOPHILS 4.8 %; EOSINOPHILS ABSOLUTE 0.25 10/3/uL (0.0-0.53); HEMOGLOBIN 10.9 g/dL (13.6-17.8); IMMATURE GRANULOCYTES 0.4 %; IMMATURE GRANULOCYTES ABSOLUTE 0.02 10/3/uL (0.0-0.11); LYMPHOCYTES 26.4 %; LYMPHOCYTES ABSOLUTE 1.37 10/3/uL (0.67-4.30); MEAN CORPUSCULAR HEMOGLOB 29.3 pg (26.0-34.0); MEAN CORPUSCULAR VOLUME 88.7 fL (80-100); MEAN PLATELET VOLUME 10.2 fL (9.2-13.0); MONOCYTES 12.2 %; MONOCYTES ABSOLUTE 0.63 10/3/uL (0.21-1.20); NEUTROPHILS 55.2 %; NEUTROPHILS ABSOLUTE 2.86 10/3/uL (2.02-8.40); PLATELET COUNT 355 10/3/uL (150-400); RBC DISTRIBUTION WIDTH 14.8 % (12.0-16.0); RED CELL COUNT 3.72 10/6/uL (4.7-6.1); WHITE BLOOD CELLS 5.2 10/3/uL (4.5-10.5)
[2017-02-17 06:07] LABS: MANUAL DIFF NO %
[2017-02-17 06:19] LABS: ALBUMIN 2.5 G/DL (3.5-5.0); BUN (BLOOD UREA NITROGEN) 14 MG/DL (6-23); CALCIUM, SERUM 8.7 MG/DL (8.5-10.4); CHLORIDE, SERUM 99 MMOL/L (96-112); CO2 (CARBON DIOXIDE) 29 MMOL/L (24-34); CREATININE 0.84 MG/DL (0.70-1.30); GFR AFRICAN AMERICAN 113 ML/MIN (>=60); GFR NON AFRICAN AMERICAN 98 ML/MIN (>=60); POTASSIUM, SERUM 3.9 MMOL/L (3.5-5.3); SGOT(AST) 79 U/L (5-40); SGPT(ALT) 183 U/L (5-65); SODIUM, SERUM 134 MMOL/L (135-148); TOTAL PROTEIN 6.9 G/DL (6.0-8.5)
[2017-02-17 06:20] LABS: ALKALINE PHOSPHATASE 956 U/L (45-117); DIRECT BILIRUBIN 3.2 MG/DL (0.0-0.4); GLUCOSE, SERUM 184 MG/DL (60-99); INDIRECT BILIRUBIN(NOT ORDER) 1.4 MG/DL (0.1-0.9); TOTAL BILIRUBIN 4.6 MG/DL (0-1.2)
[2017-02-18 06:30] LABS: BASOPHILS ABSOLUTE 0.06 10/3/uL (0.0-0.16); EOSINOPHILS 3.6 %; EOSINOPHILS ABSOLUTE 0.21 10/3/uL (0.0-0.53); HEMATOCRIT 33.4 % (40.0-51.0); HEMOGLOBIN 10.7 g/dL (13.6-17.8); IMMATURE GRANULOCYTES 0.3 %; IMMATURE GRANULOCYTES ABSOLUTE 0.02 10/3/uL (0.0-0.11); LYMPHOCYTES 26.9 %; LYMPHOCYTES ABSOLUTE 1.55 10/3/uL (0.67-4.30); MEAN CORPUSCULAR HEMOGLOB 28.6 pg (26.0-34.0); MEAN CORPUSCULAR VOLUME 89.3 fL (80-100); MEAN PLATELET VOLUME 10.6 fL (9.2-13.0); MONOCYTES 12.7 %; MONOCYTES ABSOLUTE 0.73 10/3/uL (0.21-1.20); NEUTROPHILS 55.5 %; PLATELET COUNT 358 10/3/uL (150-400); RBC DISTRIBUTION WIDTH 15.3 % (12.0-16.0); RED CELL COUNT 3.74 10/6/uL (4.7-6.1); WHITE BLOOD CELLS 5.8 10/3/uL (4.5-10.5)
[2017-02-18 06:36] LABS: MANUAL DIFF NO %
[2017-02-18 06:40] LABS: PROTIME (NOT ORD) 12.9 SEC (12.0-14.5)
[2017-02-18 06:46] LABS: ALBUMIN 2.5 G/DL (3.5-5.0); BUN (BLOOD UREA NITROGEN) 15 MG/DL (6-23); CALCIUM, SERUM 8.7 MG/DL (8.5-10.4); CHLORIDE, SERUM 102 MMOL/L (96-112); CO2 (CARBON DIOXIDE) 27 MMOL/L (24-34); CREATININE 0.76 MG/DL (0.70-1.30); GFR AFRICAN AMERICAN 118 ML/MIN (>=60); GFR NON AFRICAN AMERICAN 102 ML/MIN (>=60); GLUCOSE, SERUM 193 MG/DL (60-99); POTASSIUM, SERUM 4.1 MMOL/L (3.5-5.3); SGOT(AST) 82 U/L (5-40); SGPT(ALT) 162 U/L (5-65); SODIUM, SERUM 137 MMOL/L (135-148); TOTAL PROTEIN 6.8 G/DL (6.0-8.5)
[2017-02-18 06:47] LABS: DIRECT BILIRUBIN 2.5 MG/DL (0.0-0.4)
[2017-02-18 06:48] LABS: ALKALINE PHOSPHATASE 839 U/L (45-117); INDIRECT BILIRUBIN(NOT ORDER) 1.6 MG/DL (0.1-0.9); TOTAL BILIRUBIN 4.1 MG/DL (0-1.2)
[2017-02-19 06:52] LABS: BASOPHILS 0.4 %; BASOPHILS ABSOLUTE 0.05 10/3/uL (0.0-0.16); EOSINOPHILS 0.3 %; EOSINOPHILS ABSOLUTE 0.03 10/3/uL (0.0-0.53); HEMATOCRIT 31.3 % (40.0-51.0); HEMOGLOBIN 10.3 g/dL (13.6-17.8); IMMATURE GRANULOCYTES 0.3 %; IMMATURE GRANULOCYTES ABSOLUTE 0.03 10/3/uL (0.0-0.11); LYMPHOCYTES ABSOLUTE 0.69 10/3/uL (0.67-4.30); MEAN CORPUS HGB CONC 32.9 g/dL (32.0-36.0); MEAN CORPUSCULAR VOLUME 88.2 fL (80-100); MEAN PLATELET VOLUME 10.3 fL (9.2-13.0); MONOCYTES 11.5 %; MONOCYTES ABSOLUTE 1.33 10/3/uL (0.21-1.20); NEUTROPHILS 81.5 %; NEUTROPHILS ABSOLUTE 9.45 10/3/uL (2.02-8.40); PLATELET COUNT 320 10/3/uL (150-400); RBC DISTRIBUTION WIDTH 15.5 % (12.0-16.0); RED CELL COUNT 3.55 10/6/uL (4.7-6.1); WHITE BLOOD CELLS 11.6 10/3/uL (4.5-10.5)
[2017-02-19 06:53] LABS: MANUAL DIFF NO %
[2017-02-19 07:04] LABS: A/G RATIO 0.7 (0.7-1.9); ALBUMIN 2.8 G/DL (3.5-5.0); ALKALINE PHOSPHATASE 700 U/L (45-117); BUN (BLOOD UREA NITROGEN) 10 MG/DL (6-23); CALCIUM, SERUM 8.5 MG/DL (8.5-10.4); CHLORIDE, SERUM 98 MMOL/L (96-112); CO2 (CARBON DIOXIDE) 28 MMOL/L (24-34); CREATININE 0.84 MG/DL (0.70-1.30); GFR AFRICAN AMERICAN 113 ML/MIN (>=60); GFR NON AFRICAN AMERICAN 98 ML/MIN (>=60); GLOBULIN 4.2 G/DL (2.5-4.1); GLUCOSE, SERUM 287 MG/DL (60-99); POTASSIUM, SERUM 4.2 MMOL/L (3.5-5.3); SGOT(AST) 130 U/L (5-40); SGPT(ALT) 169 U/L (5-65); SODIUM, SERUM 134 MMOL/L (135-148); TOTAL BILIRUBIN 4.1 MG/DL (0-1.2)
[2017-02-20 06:54] LABS: BASOPHILS 0.1 %; BASOPHILS ABSOLUTE 0.02 10/3/uL (0.0-0.16); EOSINOPHILS 0.7 %; IMMATURE GRANULOCYTES 0.1 %; IMMATURE GRANULOCYTES ABSOLUTE 0.02 10/3/uL (0.0-0.11); LYMPHOCYTES ABSOLUTE 0.81 10/3/uL (0.67-4.30); MEAN CORPUS HGB CONC 32.7 g/dL (32.0-36.0); MEAN CORPUSCULAR VOLUME 88.7 fL (80-100); MEAN PLATELET VOLUME 9.6 fL (9.2-13.0); MONOCYTES 12.5 %; NEUTROPHILS 80.6 %; NEUTROPHILS ABSOLUTE 10.95 10/3/uL (2.02-8.40); PLATELET COUNT 261 10/3/uL (150-400); RBC DISTRIBUTION WIDTH 16.3 % (12.0-16.0); WHITE BLOOD CELLS 13.6 10/3/uL (4.5-10.5)
[2017-02-20 06:56] LABS: HEMATOCRIT 27.5 % (40.0-51.0); MANUAL DIFF NO %
[2017-02-20 07:12] LABS: A/G RATIO 0.6 (0.7-1.9); ALBUMIN 2.5 G/DL (3.5-5.0); BUN (BLOOD UREA NITROGEN) 12 MG/DL (6-23); CALCIUM, SERUM 8.5 MG/DL (8.5-10.4); CHLORIDE, SERUM 104 MMOL/L (96-112); CO2 (CARBON DIOXIDE) 25 MMOL/L (24-34); CREATININE 0.69 MG/DL (0.70-1.30); GFR AFRICAN AMERICAN 123 ML/MIN (>=60); GFR NON AFRICAN AMERICAN 106 ML/MIN (>=60); POTASSIUM, SERUM 4.3 MMOL/L (3.5-5.3); SGOT(AST) 99 U/L (5-40); SGPT(ALT) 127 U/L (5-65); SODIUM, SERUM 137 MMOL/L (135-148); TOTAL PROTEIN 6.5 G/DL (6.0-8.5)
[2017-02-20 07:13] LABS: ALKALINE PHOSPHATASE 516 U/L (45-117); GLUCOSE, SERUM 181 MG/DL (60-99); TOTAL BILIRUBIN 3.1 MG/DL (0-1.2)
[2017-02-21 05:29] LABS: HEMOGLOBIN 8.9 g/dL (13.6-17.8); MEAN CORPUS HGB CONC 31.8 g/dL (32.0-36.0); MEAN CORPUSCULAR HEMOGLOB 29.1 pg (26.0-34.0); MEAN PLATELET VOLUME 10.3 fL (9.2-13.0); PLATELET COUNT 271 10/3/uL (150-400); RBC DISTRIBUTION WIDTH 16.4 % (12.0-16.0); RED CELL COUNT 3.06 10/6/uL (4.7-6.1)
[2017-02-21 05:30] LABS: MANUAL DIFF YES %; MEAN CORPUSCULAR VOLUME 91.5 fL (80-100)
[2017-02-21 05:34] LABS: BUN (BLOOD UREA NITROGEN) 11 MG/DL (6-23); CALCIUM, SERUM 8.1 MG/DL (8.5-10.4); CHLORIDE, SERUM 106 MMOL/L (96-112); CO2 (CARBON DIOXIDE) 29 MMOL/L (24-34); CREATININE 0.67 MG/DL (0.70-1.30); GFR AFRICAN AMERICAN 124 ML/MIN (>=60); GFR NON AFRICAN AMERICAN 107 ML/MIN (>=60); POTASSIUM, SERUM 4.1 MMOL/L (3.5-5.3); SODIUM, SERUM 138 MMOL/L (135-148)
[2017-02-21 05:36] LABS: GLUCOSE, SERUM 71 MG/DL (60-99)
[2017-02-21 06:08] LABS: EOSINOPHILS 4 %; HYPOCHROMIA 1+ (3-10/OIF) (0-2/OIF); LYMPHOCYTES 16 %; MONOCYTES 14 %; PLATELET ESTIMATE ADQ (ADEQUATE); SEGMENTED NEUTROPHIL (0) 66 %; TOTAL NUCLEATED CELLS 100
[2017-02-22 03:56] LABS: BASOPHILS 0.4 %; BASOPHILS ABSOLUTE 0.03 10/3/uL (0.0-0.16); EOSINOPHILS 4.4 %; EOSINOPHILS ABSOLUTE 0.37 10/3/uL (0.0-0.53); HEMATOCRIT 28.6 % (40.0-51.0); HEMOGLOBIN 9.1 g/dL (13.6-17.8); IMMATURE GRANULOCYTES 0.2 %; IMMATURE GRANULOCYTES ABSOLUTE 0.02 10/3/uL (0.0-0.11); LYMPHOCYTES 14.3 %; MANUAL DIFF NO %; MEAN CORPUS HGB CONC 31.8 g/dL (32.0-36.0); MEAN CORPUSCULAR HEMOGLOB 28.8 pg (26.0-34.0); MEAN CORPUSCULAR VOLUME 90.5 fL (80-100); MEAN PLATELET VOLUME 9.4 fL (9.2-13.0); MONOCYTES 14.1 %; MONOCYTES ABSOLUTE 1.18 10/3/uL (0.21-1.20); NEUTROPHILS 66.6 %; NEUTROPHILS ABSOLUTE 5.57 10/3/uL (2.02-8.40); PLATELET COUNT 295 10/3/uL (150-400); RBC DISTRIBUTION WIDTH 16.4 % (12.0-16.0); RED CELL COUNT 3.16 10/6/uL (4.7-6.1); WHITE BLOOD CELLS 8.4 10/3/uL (4.5-10.5)
[2017-02-22 04:12] LABS: A/G RATIO 0.6 (0.7-1.9); ALBUMIN 2.3 G/DL (3.5-5.0); BUN (BLOOD UREA NITROGEN) 10 MG/DL (6-23); CALCIUM, SERUM 8.1 MG/DL (8.5-10.4); CHLORIDE, SERUM 103 MMOL/L (96-112); CO2 (CARBON DIOXIDE) 29 MMOL/L (24-34); CREATININE 0.64 MG/DL (0.70-1.30); GFR AFRICAN AMERICAN 127 ML/MIN (>=60); GFR NON AFRICAN AMERICAN 109 ML/MIN (>=60); POTASSIUM, SERUM 4.2 MMOL/L (3.5-5.3); SGOT(AST) 99 U/L (5-40); SGPT(ALT) 120 U/L (5-65); SODIUM, SERUM 138 MMOL/L (135-148); TOTAL PROTEIN 6.3 G/DL (6.0-8.5)
[2017-02-22 04:14] LABS: ALKALINE PHOSPHATASE 443 U/L (45-117); GLUCOSE, SERUM 124 MG/DL (60-99)
[2017-02-23 06:08] LABS: BASOPHILS 0.4 %; BASOPHILS ABSOLUTE 0.03 10/3/uL (0.0-0.16); EOSINOPHILS 2.2 %; EOSINOPHILS ABSOLUTE 0.17 10/3/uL (0.0-0.53); HEMATOCRIT 32.6 % (40.0-51.0); HEMOGLOBIN 10.6 g/dL (13.6-17.8); IMMATURE GRANULOCYTES 0.1 %; IMMATURE GRANULOCYTES ABSOLUTE 0.01 10/3/uL (0.0-0.11); LYMPHOCYTES 14.4 %; LYMPHOCYTES ABSOLUTE 1.12 10/3/uL (0.67-4.30); MANUAL DIFF NO %; MEAN CORPUS HGB CONC 32.5 g/dL (32.0-36.0); MEAN CORPUSCULAR HEMOGLOB 29.3 pg (26.0-34.0); MEAN CORPUSCULAR VOLUME 90.1 fL (80-100); MEAN PLATELET VOLUME 9.3 fL (9.2-13.0); MONOCYTES 11.2 %; MONOCYTES ABSOLUTE 0.87 10/3/uL (0.21-1.20); NEUTROPHILS 71.7 %; NEUTROPHILS ABSOLUTE 5.59 10/3/uL (2.02-8.40); PLATELET COUNT 332 10/3/uL (150-400); RBC DISTRIBUTION WIDTH 16.3 % (12.0-16.0); RED CELL COUNT 3.62 10/6/uL (4.7-6.1); WHITE BLOOD CELLS 7.8 10/3/uL (4.5-10.5)
[2017-02-23 06:28] LABS: A/G RATIO 0.6 (0.7-1.9); ALBUMIN 2.6 G/DL (3.5-5.0); BUN (BLOOD UREA NITROGEN) 10 MG/DL (6-23); CHLORIDE, SERUM 100 MMOL/L (96-112); CO2 (CARBON DIOXIDE) 26 MMOL/L (24-34); CREATININE 0.67 MG/DL (0.70-1.30); GFR AFRICAN AMERICAN 124 ML/MIN (>=60); GFR NON AFRICAN AMERICAN 107 ML/MIN (>=60); GLOBULIN 4.6 G/DL (2.5-4.1); GLUCOSE, SERUM 120 MG/DL (60-99); POTASSIUM, SERUM 3.9 MMOL/L (3.5-5.3); SGOT(AST) 101 U/L (5-40); SGPT(ALT) 132 U/L (5-65); SODIUM, SERUM 135 MMOL/L (135-148); TOTAL BILIRUBIN 2.9 MG/DL (0-1.2); TOTAL PROTEIN 7.2 G/DL (6.0-8.5)
[2017-02-23 06:32] LABS: ALKALINE PHOSPHATASE 473 U/L (45-117)
[2017-02-23] MEDS ORDERED: NORV10 PO (08:46)
[2017-02-23] MEDS ORDERED: LIPITOR80 MG PO (08:47)
[2017-02-23] MEDS ORDERED: PROTONIX PO (08:47)
[2017-02-23] MEDS ORDERED: COREG6 PO (08:47)
== END 2017-02-23 12:39 | disposition home or self-care (01) | DRG 414 ==
LOC: 4SO 17:45 → SDC/OF 02-18 09:10 → 4SO 02-18 14:11
PROVIDERS: Hospitalist; Internal Medicine; Internal Medicine Hematology & Oncology; Nurse Practitioner Family; Student in an Organized Health Care Education/Training Program; Surgery
DX: C25.0 Malignant neoplasm of head of pancreas (principal); K83.1 Obstruction of bile duct; C78.89 Secondary malignant neoplasm of other digestive organs; Q45.3 Other congenital malformations of pancreas and pancreatic duct; J95.811 Postprocedural pneumothorax; K81.1 Chronic cholecystitis; I10 Essential (primary) hypertension; Y84.8 Other medical procedures as the cause of abnormal reaction of the patient, or of later complication, without mention of misadventure at the time of the procedure; D64.9 Anemia, unspecified; I25.10 Atherosclerotic heart disease of native coronary artery without angina pectoris; M19.90 Unspecified osteoarthritis, unspecified site; Z98.890 Other specified postprocedural states; Z86.73 Personal history of transient ischemic attack (TIA), and cerebral infarction without residual deficits; M81.0 Age-related osteoporosis without current pathological fracture; Z72.0 Tobacco use; Y92.239 Unspecified place in hospital as the place of occurrence of the external cause
CPT/HCPCS: 36415; 71010; 71260; 74177; 74330; 80048; 80053; 80069; 80076; 82248; 82962; 83735; 85007; 85025; 85027; 85610; 85730; 86850; 86900; 86901; 88112; 88304; 88305; 88307; 88331; 88332; 93005; 97161-GP; A9270-GY; C1725; C1751; C1769; C2625; C9113; J0330; J0360; J0690; J0694; J1200; J1956; J2250; J2300; J2370; J2405; J2710; J3010; P9045; Q9967

== ENCOUNTER 2017-03-12 09:17 | Day surgery (SDC) | payer BC ==
--- NOTE | ~2017-03-12 | OP ---
Record Of Operation [facility] [address] [place]. [address] NAME: JOÃO MOORE JR : 60 STATUS : [place] [facility] [place]#: [id number] AGE: 56 ADM/REG DATE : 03/12/17 MR#: [id number] REPORT SERV DATE: 03/12/17 DICTATED BY: WILFRED DIGGS III DATE: 03/12/17 REPORT STATUS : Draft TRANSCRIBED BY: MODMatteo DATE: 03/12/17 DATE OF PROCEDURE: 03/12/2017 PREOPERATIVE DIAGNOSIS: Pancreatic cancer with need for subclavian vein Port-A-Cath placement to allow for chronic IV access for chemotherapy. POSTOPERATIVE DIAGNOSIS: Pancreatic cancer with need for subclavian vein Port-A-Cath placement to allow for chronic IV access for chemotherapy. PROCEDURE: Right subclavian vein Port-A-Cath placement with fluoroscopy. SURGEON: Wilfred Diggs M.D. ANESTHESIA: General with intubation. COMPLICATIONS: None. ESTIMATED BLOOD LOSS: Less than 5 mL. SPECIMENS: None. DRAINS: None. LAP AND SPONGE COUNT: Correct x3. BRIEF HISTORY: This 56-year-old male was recently diagnosed with pancreatic cancer. We have been asked by his medical oncologist to place a Port-A-Cath to allow for chronic IV access for chemotherapy. This procedure, the risks, benefits, and alternatives, including not limited to the risk of bleeding, infection, pneumothorax, air embolus, pericardial tamponade, failure of the port to function, infection of the port or subclavian vein thrombosis requiring removal of the port, dislodgement of the Port-A-Cath tubing, requiring extraction, and unforeseen complications including deep venous thrombosis, pulmonary embolus, myocardial infarction, stroke, pneumonia, and , were fully explained to the patient prior to surgery. His questions were answered. He understood the risks and agreed to the surgery as planned. DESCRIPTION OF PROCEDURE: After being appropriately identified, and after discussing risks of surgery with the patient again in the preoperative area, the patient was taken to the operating room and placed in the supine position on the operating room table. General anesthesia was administered, and the patient was intubated without difficulty. The upper chest and neck areas were prepped and draped sterilely in the usual fashion. After an appropriate "time-out" per JCAHO standards, a needle was used to identify the right subclavian vein. The vein was identified on the first pass of the needle. A guidewire was passed through the needle and the needle was removed. Fluoroscopy was performed, confirming the tip of the guidewire to be in the correct position of superior vena cava. A small transverse incision was then made at the exit site of the guidewire from the skin. A Record Of Operation [place] [id number] [facility] [place]. [address] NAME: JOÃO MOORE JR : 60 STATUS : REG [facility] PAT#: [id number] AGE: 56 ADM/REG DATE : 03/12/17 MR#: [id number] REPORT SERV DATE: 03/12/17 DICTATED BY: WILFRED DIGGS III DATE: 03/12/17 REPORT STATUS : Draft TRANSCRIBED BY: BINDU DATE: 03/12/17 subcutaneous infraclavicular pocket was made of the appropriate size for the Port-A-Cath housing. The Port-A-Cath housing was connected to the tubing. The Port-A-Cath housing and tubing were flushed with a heparin solution, and the tubing was cut to the appropriate length. The introducer was then placed over the guidewire. The guidewire and inner dilator were removed. The Port-A-Cath tubing was then placed through the sheath as the sheath was peeled away. This went very smoothly. The Port-A-Cath housing was positioned in the infraclavicular pocket. It was secured in place with 2-0 silk sutures. It was accessed with a Henry needle and noted to aspirate blood easily. It was then flushed with heparin solution noted to flush easily. Repeat fluoroscopy was performed, confirming the tip of the Port-A-Cath tubing to be in the correct position in superior vena cava. Hemostasis was assured. The subcutaneous tissue was closed with a running 3-0 Vicryl suture. The skin was closed with running subcuticular 4-0 Monocryl stitch. The incision was injected with 0.5% Marcaine. Dressings were applied. Anesthesia was reversed, and the patient was taken to recovery room in stable condition. The patient tolerated the procedure well. The patient will be discharged later when stable and comfortable after the chest x-ray has been cleared per Radiology. The patient's family was advised that the wound should be kept clean and dry for 48 hours, that there should be no driving for 2-3 days after surgery or while using narcotics, and the patient shall resume usual medications. The patient was asked to return in two weeks for followup or sooner for any fever, chills, wound drainage, or other problems prior to that time. RHJ/MODL Wilfred Diggs III, M.D. / [id number] CC: Wilfred Diggs III, M.D.
--- NOTE | ~2017-03-12 | PREOPHP ---
PreOp History and Physical [place] [id number] [facility] [place]. [address] NAME: JOÃO MOORE JR : 60 STATUS : [facility]#: [id number] AGE: 56 ADM/REG DATE : 03/12/17 MR#: [id number] REPORT SERV DATE: 03/14/17 DICTATED BY: WIFLRED DIGGS III DATE: 03/10/17 REPORT STATUS : Draft TRANSCRIBED BY: MODMatteo DATE: 03/10/17 HISTORY OF PRESENT ILLNESS: A 56-year-old male comes to the operating room for subclavian vein Port-A-Cath placement. The patient has recently been diagnosed with a periampullary pancreatic head cancer. Underwent laparotomy and the tumor was not resectable. He is to begin palliative chemotherapy soon. We have been asked by his medical oncologist to place a Port-A-Cath to allow for chronic IV access for chemotherapy. The patient comes to the operating room now for Port-A-Cath placement. PAST MEDICAL HISTORY: 1. 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 2. Type 2 diabetes mellitus. 3. Hypertension. 4. Coronary artery disease. MEDICATIONS: As per medication list. PHYSICAL EXAMINATION: GENERAL: This is a male, in no acute distress. He is alert and oriented x3. HEENT: Unremarkable. Cranial nerves 2 through 12 are normal. LUNGS: Clear. HEART: Normal. ABDOMEN: Soft, nontender. ASSESSMENT: 1. A 56-year-old male with biopsy-proven adenocarcinoma of the head of the pancreas, obstructive jaundice, with tumor being unresectable. 2. Diabetes mellitus. 3. Hypertension. 4. Coronary artery disease. PLAN: The patient comes to the operating room now for subclavian Port-A-Cath placement to allow for chronic IV access for chemotherapy. This procedure, the risks, benefits, and alternatives, including not limited to the risk for bleeding, infection, pneumothorax, air embolus, pericardial tamponade, failure of the port to function, infection of the port, subclavian vein thrombosis requiring removal the port, dislodgement of the Port-A-Cath tubing requiring extraction, and unforeseen complications including deep venous thrombosis, pulmonary embolus, myocardial infarction, stroke, pneumonia, and have been explained to the patient prior to surgery. His questions have been answered. He clearly understands the risks and agrees to the surgery as planned. DAVID/BINDU Wilfred Diggs III, M.D. PreOp History and Physical [address] [place]. [address] NAME: JOÃO MOORE JR : 60 STATUS : [facility] PAT#: [id number] AGE: 56 ADM/REG DATE : 03/12/17 MR#: [id number] REPORT SERV DATE: 03/14/17 DICTATED BY: WILFRED DIGGS III DATE: 03/10/17 REPORT STATUS : Draft TRANSCRIBED BY: BINDU DATE: 03/10/17 / [id number]
[~2017-03-12 09:17] MED LIST changes: +COREG6 PO; +LIPITOR80 MG PO; +NORV10 PO; +PROTONIX PO
== END 2017-03-12 14:13 | disposition home or self-care (01) ==
LOC: SDC 09:17
PROVIDERS: Surgery
PROC: 05H533Z Insertion of Infusion Device into Right Subclavian Vein, Percutaneous Approach (ICD-10-PCS; principal; 2017-03-12 10:15)
DX: C25.9 Malignant neoplasm of pancreas, unspecified (principal); I10 Essential (primary) hypertension; I25.10 Atherosclerotic heart disease of native coronary artery without angina pectoris; E11.9 Type 2 diabetes mellitus without complications; F17.290 Nicotine dependence, other tobacco product, uncomplicated; Z86.73 Personal history of transient ischemic attack (TIA), and cerebral infarction without residual deficits; Z79.891 Long term (current) use of opiate analgesic; Z79.4 Long term (current) use of insulin; Z79.899 Other long term (current) drug therapy
CPT/HCPCS: 71010; 77001; 82962; C1751; J0690; J2250; J2405; J3010; Q9967